=== PATIENT | female | born 1990 | race African-American/Black ===

== ENCOUNTER 2016-07-08 05:03 | Emergency (ER) | payer OTHER ==
--- NOTE | ~2016-07-08 | CR169 ---
[facility] A Service of [facility] RADIOLOGY TEXT RESULTS PATIENT: LALO BRITO LOCATION: [facility] : [birth year] UNIT #: [id number] AGE: [address]: Timothy Ferreira DO SEX: F ORDER DR: [id number] [facility] [address] [place], [place] [address] [id number] E MR#: [id number] Acc #: [id number] NAME: LALO BRITO : 1990 SEX: F STUDY DATE/TIME: 07/08/2016 6:48 UNIT: [facility] ROOM: STUDY DESCRIPTION: CR Knee 2 Views Lt Attending Physician: Timothy Ferreira D.O. Ordering Physician: Timothy Ferreira D.O. Primary Care Physician: Bry Not Listed MEDICAL IMAGING REPORT This report is preliminary unless electronic signature is present EXAM Left knee, 07/08/2016. HISTORY 26-year-old female with left knee pain and swelling beginning last night. COMPARISON None FINDINGS 2 views of the left knee demonstrate no acute fracture or dislocation. No joint effusion. Joint spaces are within normal limits. Soft tissues are unremarkable. IMPRESSION Unremarkable left knee. Dictated by... Femi Kramer M.D. THIS IS AN ELECTRONICALLY VERIFIED REPORT Femi Kramer M.D. at 07/09/2016 8:53 AM LOBO/won TD: 07/08/2016 07:58 JOB #: [id number] MEDICAL IMAGING REPORT Page 1 of 1 COPY
--- NOTE | ~2016-07-08 | CR20 ---
[facility] A Service of [facility] RADIOLOGY TEXT RESULTS PATIENT: LALO BRITO LOCATION: [facility] : [birth year] UNIT #: [id number] AGE: [address]: Timothy Ferreira DO SEX: F ORDER DR: [id number] [facility] [address] [place], [place] [address] [id number] E MR#: [id number] Acc #: [id number] NAME: LALO BRITO : 1990 SEX: F STUDY DATE/TIME: 07/08/2016 6:46 UNIT: [facility] ROOM: STUDY DESCRIPTION: CR Ankle Min 3 Views Lt Attending Physician: Timothy Ferreira D.O. Ordering Physician: Timothy Ferreira D.O. Primary Care Physician: Bry Not Listed MEDICAL IMAGING REPORT This report is preliminary unless electronic signature is present EXAM Left ankle, 07/08/2016. HISTORY 26-year-old female with left ankle pain and swelling beginning tonight. COMPARISON None FINDINGS 3 views of the left ankle demonstrate no acute fracture or dislocation. Ankle mortise symmetric. Talar dome intact. No ankle effusion. Soft tissues are unremarkable. IMPRESSION Unremarkable left ankle. Dictated by... Femi Kramer M.D. THIS IS AN ELECTRONICALLY VERIFIED REPORT Femi Kramer M.D. at 07/09/2016 8:53 AM LOBO/won TD: 07/08/2016 08:02 JOB #: [id number] MEDICAL IMAGING REPORT Page 1 of 1 COPY
== END 2016-07-08 09:00 | disposition left against medical advice (07) ==
LOC: CED 05:03 → CFTX 06:37 → CED 09:00
DX: S86.912A Strain of unspecified muscle(s) and tendon(s) at lower leg level, left leg, initial encounter (principal); W01.0XXA Fall on same level from slipping, tripping and stumbling without subsequent striking against object, initial encounter; Y92.9 Unspecified place or not applicable
CPT/HCPCS: 29505; 73560; 73610; 99284

== ENCOUNTER 2016-09-03 22:51 | Emergency (ER) | payer OTHER ==
[2016-09-03 23:28] LABS: BASOPHIL% 0.8 % (0-2.5); EOSINOPHIL# 0.1 X10e3 (0-0.7); EOSINOPHIL% 0.9 % (0.0-7.0); HEMATOCRIT 43.4 % (35.0-45.0); HEMOGLOBIN 14.2 gm/dL (12.0-16.0); LYMPHOCYTE# 2.5 X10e3 (1.0-3.5); LYMPHOCYTE% 44.9 % (17.0-45.0); MEAN CELL VOLUME 88.9 FL (83-96); MEAN CORPUSCULAR HEMOGLOBIN 29.1 PG (28-34); MEAN CORPUSCULAR HGB CONC 32.7 g/dL (30-36); MEAN PLATELET VOLUME 9.6 FL (6.5-11.5); MONOCYTE# 0.5 X10e3 (0-1.0); MONOCYTE% 8.2 % (3.0-12.0); NEUTROPHIL# 2.5 X10e3 (1.5-7.1); NEUTROPHIL% 45.2 % (40-75); PLATELET COUNT 233 X10e3 (140-420); RED BLOOD COUNT 4.88 X10e (3.90-5.30); RED CELL DISTRIBUTION WIDTH 14.3 % (11.0-15.5); WHITE BLOOD COUNT 5.6 X10e3 (4.0-10.5)
[2016-09-03 23:37] LABS: DIFF IND NO
[2016-09-03 23:44] LABS: URINE SOURCE CLEAN CATCH
[2016-09-03 23:50] LABS: URINE APPEARANCE CLEAR; URINE BILIRUBIN NEG (NEG); URINE BLOOD NEG (NEG); URINE COLOR YELLOW; URINE GLUCOSE NEG (NEG); URINE KETONE NEG (NEG); URINE LEUKOCYTE ESTERASE TRACE (NEG); URINE NITRATE NEG (NEG); URINE PH 8.5 (5-8); URINE PROTEIN NEG (NEG); URINE SPECIFIC GRAVITY 1.011 (1.003-1.035)
[2016-09-03 23:50] LABS: ALBUMIN SERUM 4.3 g/dL (3.5-5.0); ALKALINE PHOSPHATASE 63 U/L (32-92); ALT (SGPT) 18 U/L (10-40); AST (SGOT) 24 U/L (10-42); BILIRUBIN,TOTAL 0.4 mg/dL (0.2-2.0); BLOOD UREA NITROGEN 9 mg/dL (9-23); BUN/CREATININE RATIO 12.85; CALCIUM SERUM 8.9 mg/dL (8.4-10.2); CARBON DIOXIDE 25 mmol/L (22-31); CHLORIDE 102 mmol/L (100-111); CREATININE SERUM 0.7 mg/dL (0.6-1.4); GLOM FILT RATE Estimated 137.6 mL/min (>60); GLUCOSE FASTING 120 mg/dL (70-110); LIPASE 31 U/L (22-51); POTASSIUM 3.5 mmol/L (3.5-5.1); PROTEIN TOTAL SERUM 8.3 g/dL (6.0-8.3); SODIUM 134 mmol/L (135-145)
[2016-09-03 23:52] LABS: BILIRUBIN, DIRECT <0.1 mg/dL (0.0-0.2); BILIRUBIN,INDIRECT 0.3 mg/dL (0.0-0.9)
[2016-09-03 23:53] LABS: CULTURE INDICATED? YES; URBCS1 AUWI 0-2 /[HPF] (0-2); URINE BACTERIA AUWI 1+ (NEGATIVE); URINE SQUAMOUS EPITHELIAL CELL OCC /[HPF]; UWBCS1 AUWI 0-2 (0-5)
== END 2016-09-04 02:05 | disposition home or self-care (01) ==
LOC: CED 22:51
DX: R10.9 Unspecified abdominal pain (principal); R10.2 Pelvic and perineal pain
CPT/HCPCS: 36415; 80048; 80076; 81003; 83690; 84703; 85025; 87086; 96372; 99284; J1885